=== PATIENT | female | born 1940 | race Caucasian/White ===

== ENCOUNTER 2017-01-01 13:24 | Outpatient (CLI) | payer OTHER, MEDICARE | END 2017-01-01 18:37 | disposition home or self-care (01) | LOC: SCA 13:24 | DX: Z01.818 Encounter for other preprocedural examination (principal) | CPT/HCPCS: 93005 ==

== ENCOUNTER 2022-12-11 19:46 | Inpatient (IN) | payer OTHER, MEDICARE ==
[~2022-12-11] VITALS: Ht 165.1 cm; Wt 81.2 kg
[2022-12-11 20:07] VITALS: BP_SYST 162
[2022-12-11 20:58] LABS: BASOPHILS % (AUTO) 0.3 % (0.0-2.0); EOSINOPHILS % (AUTO) 0.3 % (0.0-4.0); HEMATOCRIT 43.5 % (36-48); HEMOGLOBIN 14.2 g/dL (12.0-16.0); LYMPHOCYTES % (AUTO) 14.3 % (20.5-51.5); MEAN CORPUSCULAR HEMOGLOBIN 30 pg (27-31); MEAN CORPUSCULAR HGB CONC 33 % (32-36); MEAN CORPUSCULAR VOLUME 90 fL (79.0-98.0); MONOCYTES # (AUTO) 0.3 K/uL (0.0-1.0); NEUTROPHILS # (AUTO) 5.5 K/uL (1.8-7.7); NEUTROPHILS % (AUTO) 80.1 % (40.0-70.0); PLATELET COUNT (AUTO) 162 K/uL (130-430); RED BLOOD CELL COUNT(AUTO) 4.81 MIL/uL (4.2-6.2); RED CELL DISTRIBUTION WIDTH 16.4 % (9.0-15.0); WHITE BLOOD COUNT (AUTO) 6.8 K/uL (4.8-10.8)
[2022-12-11 21:11] LABS: ANION GAP 9 (5-15); CALCIUM 9.4 mg/dL (8.4-11.0); CHLORIDE 103 mmol/L (98-107); CREATININE 0.83 mg/dL (0.55-1.30); GLUCOSE 101 mg/dL (70-99); UREA NITROGEN, BLOOD 24 mg/dL (8-21)
[2022-12-11 21:20] LABS: ALANINE AMINOTRANSFERASE 32 U/L (12-78); ALBUMIN 3.8 g/dL (3.4-4.8); ASPARTATE AMINOTRANSFERASE 19 U/L (10-37); LIPASE 70 U/L (73-393); TOTAL BILIRUBIN 0.7 mg/dL (0.0-1.0)
[2022-12-11] MEDS ORDERED: MORPHINE 4 MG INJ. 4 MG/ML VIAL IVP ONE (21:30)
[2022-12-11 21:38] LABS: BILIRUBIN,URINE NEGATIVE (NEGATIVE); BLOOD, URINE NEGATIVE (NEGATIVE); COLOR,URINE YELLOW (YELLOW); GLUCOSE,URINE NEGATIVE (NEGATIVE); KETONES,URINE 2+ (NEGATIVE); LEUKOCYTE ESTERASE ,URINE NEGATIVE (NEGATIVE); NITRITE, URINE POSITIVE (NEGATIVE); PROTEIN URINE NEGATIVE (NEGATIVE); UROBILINOGEN,URINE 0.2 (0.2-1.0)
[2022-12-11 21:43] LABS: CLARITY/URINE HAZY (CLEAR)
[2022-12-11] MEDS ORDERED: ONDANSETRON HCL 4 MG/2 ML VIAL IVP ONE (21:45)
[2022-12-11] MEDS ORDERED: GABA-333 PO (21:50)
[2022-12-11] MEDS ORDERED: LEVO125C4 PO (21:50)
[2022-12-11] MEDS ORDERED: OXYC-133 PO (21:50)
[2022-12-11] MEDS ORDERED: DICL75TA5 PO (21:50)
[2022-12-11] MEDS ORDERED: PIPERACILLIN/TAZO 3.375/DEX-IS 50 ML IV SCH (22:00)
[2022-12-11] MEDS ORDERED: KCL 20 mEq in D5/0.45NS 1000mL 1,000 ML IV ONE (22:15)
[2022-12-11] MEDS ORDERED: cefTRIAXone 1 GM IVPB PREMIX 50 ML IV ONE (22:15)
[2022-12-11 22:17] LABS: BACTERIA,URINE MANY /HPF (None Seen); RBC,URINE NONE SEEN /HPF (0-3); WBC,URINE 0-3 /HPF (0-3)
[2022-12-11 22:18] LABS: MUCUS,URINE None Seen /LPF (None Seen); URINE AMORPHOUS PHOSPHATES 2+ /HPF (None Seen)
[2022-12-12 00:29] VITALS: BP_SYST 160
[2022-12-12] MEDS ORDERED: PIPERACILLIN/TAZOBACTAM 3.375 GM/VIAL (ZOSYN) IV ONE (00:53)
[2022-12-12] MEDS ORDERED: KCL 20 mEq in D5/0.45NS 1000mL 1,000 ML IV ONE (00:54)
[2022-12-12] MEDS ORDERED: cefTRIAXone 1 GM VIAL ONE (00:57)
[2022-12-12] MEDS: MORPHINE 2 MG/ML INJ. SYRINGE IVP PRN ×2 (01:08→18:27)
[2022-12-12 04:50] VITALS: BP_SYST 157
[2022-12-12] MEDS: ONDANSETRON HCL 4 MG/2 ML VIAL IVP PRN (04:57)
[2022-12-12 05:01] LABS: BASOPHILS # (AUTO) 0.1 K/uL (0.0-0.2); BASOPHILS % (AUTO) 0.6 % (0.0-2.0); EOSINOPHILS % (AUTO) 0.1 % (0.0-4.0); HEMOGLOBIN 14.7 g/dL (12.0-16.0); LYMPHOCYTES # (AUTO) 1.6 K/uL (1.0-5.5); LYMPHOCYTES % (AUTO) 18.9 % (20.5-51.5); MEAN CORPUSCULAR HEMOGLOBIN 30 pg (27-31); MEAN CORPUSCULAR HGB CONC 33 % (32-36); MEAN CORPUSCULAR VOLUME 89 fL (79.0-98.0); MONOCYTES # (AUTO) 0.3 K/uL (0.0-1.0); MONOCYTES % (AUTO) 3.1 % (1.7-9.3); NEUTROPHILS # (AUTO) 6.5 K/uL (1.8-7.7); NEUTROPHILS % (AUTO) 77.3 % (40.0-70.0); PLATELET COUNT (AUTO) 169 K/uL (130-430); RED BLOOD CELL COUNT(AUTO) 4.94 MIL/uL (4.2-6.2); RED CELL DISTRIBUTION WIDTH 16.4 % (9.0-15.0); WHITE BLOOD COUNT (AUTO) 8.4 K/uL (4.8-10.8)
[2022-12-12 05:22] LABS: ANION GAP 10 (5-15); CALCIUM 9.2 mg/dL (8.4-11.0); CHLORIDE 103 mmol/L (98-107); CREATININE 0.68 mg/dL (0.55-1.30); GLUCOSE 135 mg/dL (70-99); UREA NITROGEN, BLOOD 16 mg/dL (8-21)
[2022-12-12 05:26] LABS: PROTHROMBIN TIME 10.3 SECS (9.5-12.5)
[2022-12-12] MEDS ORDERED: HYDROmorphone 2 MG/ML VIAL ONE (06:23)
[2022-12-12] MEDS ORDERED: PHENYLEPHRINE HCL 10 MG/ML VIAL (NEOSYNEPHRINE) ONE (06:23)
[2022-12-12] MEDS ORDERED: PROPOFOL 200MG/ 20ML VIAL (DIPRIVAN) IV ONE (06:23)
[2022-12-12] MEDS ORDERED: GLYCOPYRROLATE 0.2 MG/ML VIAL ONE (06:23)
[2022-12-12] MEDS ORDERED: SEVOFLURANE 15 MIN GAS INH ONE (06:23)
[2022-12-12] MEDS ORDERED: MIDAZOLAM HCL 2 MG/2 ML VIAL (VERSED) ONE (06:23)
[2022-12-12] MEDS ORDERED: NS IRRIG SOLN 1000 ML IR ONE (06:23)
[2022-12-12] MEDS ORDERED: ROCURONIUM BROMIDE 10 MG/ML (ZEMURON) ONE (06:23)
[2022-12-12] MEDS ORDERED: LIDOCAINE/EPI 1% 1:100000 20 ML VIAL ONE (06:23)
[2022-12-12] MEDS ORDERED: ePHEDrine sulfate 50 MG/ML VIAL ONE (06:23)
[2022-12-12] MEDS ORDERED: 0.45% NACL 1,000 ML BAG IV ONE (06:23)
[2022-12-12] MEDS ORDERED: ONDANSETRON HCL 4 MG/2 ML VIAL ONE (06:23)
[2022-12-12] MEDS ORDERED: BUPIVACAINE LIPOSOME/PF 266 MG/20 ML VIAL INFIL ONE (06:48)
[2022-12-12] MEDS ORDERED: PIPERACILLIN/TAZO 3.375/DEX-IS 50 ML IV SCH (08:15)
[2022-12-12] MEDS ORDERED: NALOXONE HCL 0.4 MG/ML AMP (NARCAN) IVP PRN (09:30)
[2022-12-12] MEDS ORDERED: HYDROmorphone 1 MG/ML INJ. CARTRIDGE IVP PRN (09:30)
[2022-12-12] MEDS ORDERED: ONDANSETRON HCL 4 MG/2 ML VIAL IVP PRN (09:30)
[2022-12-12] MEDS ORDERED: MIDAZOLAM HCL 5 MG/5 ML VIAL IVP PRN (09:30)
[2022-12-12 11:15] VITALS: BP_SYST 129
[2022-12-12] MEDS: PANTOPRAZOLE SODIUM 40 MG/VIAL (PROTONIX) IVP SCH (11:45)
[2022-12-12] MEDS: PIPERACILLIN/TAZO 3.375/DEX-IS 50 ML IV SCH ×2 (11:46→22:00)
[2022-12-12 16:23] VITALS: BP_SYST 144
[2022-12-13] VITALS: BP_SYST 153
[2022-12-13] MEDS: PIPERACILLIN/TAZO 3.375/DEX-IS 50 ML IV SCH ×3 (03:33→20:00)
[2022-12-13] MEDS: MORPHINE 2 MG/ML INJ. SYRINGE IVP PRN ×4 (03:34→22:31)
[2022-12-13 04:21] VITALS: BP_SYST 141
[2022-12-13 06:12] LABS: BASOPHILS % (AUTO) 0.1 % (0.0-2.0); EOSINOPHILS % (AUTO) 0.1 % (0.0-4.0); HEMATOCRIT 41.8 % (36-48); HEMOGLOBIN 13.9 g/dL (12.0-16.0); LYMPHOCYTES # (AUTO) 1.2 K/uL (1.0-5.5); MEAN CORPUSCULAR HEMOGLOBIN 30 pg (27-31); MEAN CORPUSCULAR HGB CONC 33 % (32-36); MEAN CORPUSCULAR VOLUME 90 fL (79.0-98.0); MONOCYTES # (AUTO) 0.7 K/uL (0.0-1.0); MONOCYTES % (AUTO) 7.4 % (1.7-9.3); NEUTROPHILS # (AUTO) 6.9 K/uL (1.8-7.7); NEUTROPHILS % (AUTO) 78.4 % (40.0-70.0); PLATELET COUNT (AUTO) 152 K/uL (130-430); RED BLOOD CELL COUNT(AUTO) 4.65 MIL/uL (4.2-6.2); RED CELL DISTRIBUTION WIDTH 16.2 % (9.0-15.0); WHITE BLOOD COUNT (AUTO) 8.8 K/uL (4.8-10.8)
[2022-12-13 06:27] LABS: ANION GAP 9 (5-15); CALCIUM 8.2 mg/dL (8.4-11.0); CHLORIDE 104 mmol/L (98-107); CREATININE 0.69 mg/dL (0.55-1.30); GLUCOSE 131 mg/dL (70-99); UREA NITROGEN, BLOOD 9 mg/dL (8-21)
[2022-12-13 08:00] VITALS: BP_SYST 151
[2022-12-13] MEDS: PANTOPRAZOLE SODIUM 40 MG/VIAL (PROTONIX) IVP SCH (09:00)
[2022-12-13 11:30] VITALS: BP_SYST 151
[2022-12-13 17:23] VITALS: BP_SYST 130
[2022-12-14] VITALS: BP_SYST 149
[2022-12-14] MEDS: PIPERACILLIN/TAZO 3.375/DEX-IS 50 ML IV SCH ×3 (04:17→21:06)
[2022-12-14 04:29] VITALS: BP_SYST 142
[2022-12-14 07:06] LABS: BASOPHILS % (AUTO) 0.3 % (0.0-2.0); EOSINOPHILS # (AUTO) 0.1 K/uL (0.0-0.4); EOSINOPHILS % (AUTO) 0.9 % (0.0-4.0); HEMATOCRIT 40.9 % (36-48); HEMOGLOBIN 13.6 g/dL (12.0-16.0); LYMPHOCYTES # (AUTO) 1.5 K/uL (1.0-5.5); LYMPHOCYTES % (AUTO) 19.1 % (20.5-51.5); MEAN CORPUSCULAR HEMOGLOBIN 30 pg (27-31); MEAN CORPUSCULAR HGB CONC 33 % (32-36); MEAN CORPUSCULAR VOLUME 90 fL (79.0-98.0); MONOCYTES # (AUTO) 0.6 K/uL (0.0-1.0); MONOCYTES % (AUTO) 8.2 % (1.7-9.3); NEUTROPHILS # (AUTO) 5.6 K/uL (1.8-7.7); NEUTROPHILS % (AUTO) 71.5 % (40.0-70.0); PLATELET COUNT (AUTO) 159 K/uL (130-430); RED BLOOD CELL COUNT(AUTO) 4.57 MIL/uL (4.2-6.2); RED CELL DISTRIBUTION WIDTH 15.9 % (9.0-15.0); WHITE BLOOD COUNT (AUTO) 7.8 K/uL (4.8-10.8)
[2022-12-14 07:31] LABS: ANION GAP 10 (5-15); CALCIUM 8.8 mg/dL (8.4-11.0); CHLORIDE 103 mmol/L (98-107); CREATININE 0.65 mg/dL (0.55-1.30); GLUCOSE 104 mg/dL (70-99); UREA NITROGEN, BLOOD 11 mg/dL (8-21)
[2022-12-14 08:00] VITALS: BP_SYST 132
[2022-12-14] MEDS: ONDANSETRON HCL 4 MG/2 ML VIAL IVP PRN ×2 (08:05→14:19)
[2022-12-14] MEDS: PANTOPRAZOLE SODIUM 40 MG/VIAL (PROTONIX) IVP SCH (08:05)
[2022-12-14] MEDS: MORPHINE 2 MG/ML INJ. SYRINGE IVP PRN ×3 (08:06→21:06)
[2022-12-14] MEDS: KCL 20 mEq in D5/0.45NS 1000mL 1,000 ML IV SCH (09:51)
[2022-12-14 11:23] VITALS: BP_SYST 123
[2022-12-14 15:12] VITALS: BP_SYST 131
[2022-12-14 20:00] VITALS: BP_SYST 151
[2022-12-14] MEDS: HYDROcodone/ACETAMIN 5-325 MG TAB (NORCO/ VICODIN) PO PRN (23:48)
[2022-12-15 02:49] VITALS: BP_SYST 141
[2022-12-15] MEDS: KCL 20 mEq in D5/0.45NS 1000mL 1,000 ML IV SCH ×2 (04:12→11:25)
[2022-12-15] MEDS: PIPERACILLIN/TAZO 3.375/DEX-IS 50 ML IV SCH ×3 (04:13→20:30)
[2022-12-15] MEDS: HYDROcodone/ACETAMIN 5-325 MG TAB (NORCO/ VICODIN) PO PRN ×4 (05:08→22:40)
[2022-12-15] MEDS: LEVOTHYROXINE SODIUM 0.125 MG TABLET PO SCH (06:12)
[2022-12-15 07:37] LABS: BASOPHILS % (AUTO) 0.4 % (0.0-2.0); EOSINOPHILS # (AUTO) 0.2 K/uL (0.0-0.4); EOSINOPHILS % (AUTO) 3.8 % (0.0-4.0); HEMATOCRIT 37.8 % (36-48); HEMOGLOBIN 12.6 g/dL (12.0-16.0); LYMPHOCYTES % (AUTO) 18.6 % (20.5-51.5); MEAN CORPUSCULAR HEMOGLOBIN 30 pg (27-31); MEAN CORPUSCULAR HGB CONC 33 % (32-36); MEAN CORPUSCULAR VOLUME 90 fL (79.0-98.0); MONOCYTES # (AUTO) 0.5 K/uL (0.0-1.0); MONOCYTES % (AUTO) 8.9 % (1.7-9.3); NEUTROPHILS # (AUTO) 3.7 K/uL (1.8-7.7); NEUTROPHILS % (AUTO) 68.3 % (40.0-70.0); PLATELET COUNT (AUTO) 156 K/uL (130-430); RED BLOOD CELL COUNT(AUTO) 4.22 MIL/uL (4.2-6.2); RED CELL DISTRIBUTION WIDTH 15.4 % (9.0-15.0); WHITE BLOOD COUNT (AUTO) 5.5 K/uL (4.8-10.8)
[2022-12-15 07:55] LABS: ANION GAP 8 (5-15); CALCIUM 8.5 mg/dL (8.4-11.0); CHLORIDE 105 mmol/L (98-107); CREATININE 0.64 mg/dL (0.55-1.30); GLUCOSE 110 mg/dL (70-99); UREA NITROGEN, BLOOD 12 mg/dL (8-21)
[2022-12-15 08:00] VITALS: BP_SYST 136
[2022-12-15] MEDS ORDERED: GABAPENTIN 400 MG CAPSULE PO ONE (09:00)
[2022-12-15] MEDS: PANTOPRAZOLE SODIUM 40 MG/VIAL (PROTONIX) IVP SCH (09:47)
[2022-12-15 15:04] VITALS: BP_SYST 144
[2022-12-15 20:07] VITALS: BP_SYST 126
[2022-12-16] VITALS: BP_SYST 114
[2022-12-16] MEDS: PIPERACILLIN/TAZO 3.375/DEX-IS 50 ML IV SCH ×2 (03:57→11:46)
[2022-12-16] MEDS: HYDROcodone/ACETAMIN 5-325 MG TAB (NORCO/ VICODIN) PO PRN ×4 (05:08→21:46)
[2022-12-16] MEDS: LEVOTHYROXINE SODIUM 0.125 MG TABLET PO SCH (05:11)
[2022-12-16 11:21] VITALS: BP_SYST 102
[2022-12-16] MEDS ORDERED: cefTRIAXone 1 GM in D5W 50 ML IV SCH (15:00)
[2022-12-16 17:20] VITALS: BP_SYST 106
[2022-12-16 20:00] VITALS: BP_SYST 142
[2022-12-17] VITALS: BP_SYST 137
[2022-12-17] MEDS: HYDROcodone/ACETAMIN 5-325 MG TAB (NORCO/ VICODIN) PO PRN ×2 (04:34→09:05)
[2022-12-17] MEDS: LEVOTHYROXINE SODIUM 0.125 MG TABLET PO SCH (06:16)
[2022-12-17 11:06] VITALS: BP_SYST 137
[2022-12-17 11:32] VITALS: BP_SYST 157
== END 2022-12-17 12:55 | DRG 330 ==
LOC: SED 19:46 → SMU 21:58
PROVIDERS: ADMIT Surgery; ATTEND Surgery
PROC: 0YQ70ZZ Repair Right Femoral Region, Open Approach (ICD-10-PCS; 2022-12-12)
PROC: 0DT80ZZ Resection of Small Intestine, Open Approach (ICD-10-PCS; principal; 2022-12-12 06:24)
DX: K40.30 Unilateral inguinal hernia, with obstruction, without gangrene, not specified as recurrent (principal); K41.30 Unilateral femoral hernia, with obstruction, without gangrene, not specified as recurrent; M54.50 Low back pain, unspecified; G89.29 Other chronic pain; Z20.822 Contact with and (suspected) exposure to COVID-19; E03.9 Hypothyroidism, unspecified; Z79.899 Other long term (current) drug therapy
CPT/HCPCS: 36415; 71045; 76376; 80048; 80053; 81000; 83690; 85025; 85610-TC; 85730-TC; 87040; 87081; 87086; 88302; 88305; 88307; 93005; 96374; 96375; 97116-GP; 97163-GP; 99285; C9113; C9290; J0696; J1170; J2270; J2370; J2405; J2543; J2704; J3465; J3490; J7060